=== PATIENT | female | born 1990 | race Caucasian/White ===

== ENCOUNTER 2016-07-07 13:37 | Inpatient (IN) | payer OTHER ==
[~2016-07-07] VITALS: Ht 154.9 cm; Wt 88.9 kg
[2016-07-07] MEDS ORDERED: ROPIVACAINE 40 MG/20 ML AMP EP ONE (15:00)
[2016-07-08] MEDS ORDERED: OXYTOCIN/NORMAL SALINE 1,000 ML IV SCH (05:40)
[2016-07-08] MEDS ORDERED: NALBUPHINE HCL 10 MG/ML AMP IVP PRN (05:45)
[2016-07-08] MEDS ORDERED: AMPICILLIN SODIUM 2 GM in NS 100 ML IV ONE (05:45)
[2016-07-08] MEDS ORDERED: TERBUTALINE SULFATE 1 MG/ML VIAL SUBCUT ONE (05:45)
[2016-07-08] MEDS: LR 1,000 ML IV SCH ×3 (06:00→10:30)
[2016-07-08] MEDS ORDERED: AMPICILLIN SODIUM 2 GM VIAL ONE (06:17)
[2016-07-08 06:47] LABS: BASOPHILS % (AUTO) 0.4 % (0.0-2.0); EOSINOPHILS # (AUTO) 0.1 K/uL (0.0-0.4); EOSINOPHILS % (AUTO) 0.8 % (0.0-4.0); HEMATOCRIT 30.7 % (36-48); HEMOGLOBIN 10.4 g/dL (12.0-16.0); LYMPHOCYTES # (AUTO) 1.2 K/uL (1.0-5.5); LYMPHOCYTES % (AUTO) 16.7 % (20.5-51.5); MEAN CORPUSCULAR HEMOGLOBIN 28 pg (27-31); MEAN CORPUSCULAR HGB CONC 34 % (32-36); MEAN CORPUSCULAR VOLUME 81 fL (79.0-98.0); MONOCYTES # (AUTO) 0.5 K/uL (0.0-1.0); MONOCYTES % (AUTO) 6.7 % (1.7-9.3); NEUTROPHILS # (AUTO) 5.6 K/uL (1.8-7.7); NEUTROPHILS % (AUTO) 75.4 % (40.0-70.0); PLATELET COUNT (AUTO) 215 K/uL (130-430); RED BLOOD CELL COUNT(AUTO) 3.79 MIL/uL (4.2-6.2); RED CELL DISTRIBUTION WIDTH 14.1 % (9.0-15.0); WHITE BLOOD COUNT (AUTO) 7.4 K/uL (4.8-10.8)
[2016-07-08 07:17] VITALS: BP_SYST 122
[2016-07-08] MEDS ORDERED: ACETAMINOPHEN 325 MG TABLET PO PRN (07:30)
[2016-07-08] MEDS ORDERED: FENT2mCg/mL-ROPIVA0.2%/NS EPID 150 ML EP ONE (09:06)
[2016-07-08] MEDS ORDERED: fentaNYL CITRATE/PF 100 MCG/2 ML AMP ONE (09:07)
[2016-07-08] MEDS ORDERED: AMPICILLIN SODIUM 1 GM in NS 50 ML IV SCH (09:45)
[2016-07-08] MEDS ORDERED: LR 500 ML IV ONE (09:51)
[2016-07-08] MEDS ORDERED: ePHEDrine sulfate 50 MG/ML VIAL IVP PRN (10:00)
[2016-07-08] MEDS ORDERED: fentaNYL CITRATE/PF 100 MCG/2 ML AMP EP ONE (10:00)
[2016-07-08] MEDS ORDERED: FENT2mCg/mL-ROPIVA0.2%/NS EPID 150 ML EP SCH (10:00)
[2016-07-08] MEDS ORDERED: TERBUTALINE SULFATE 1 MG/ML VIAL ONE (14:12)
[2016-07-08] MEDS ORDERED: MINERAL OIL 30 ML UDC PO ONE (15:00)
[2016-07-08] MEDS ORDERED: OXYTOCIN 10 UNIT/ML VIAL ONE (15:04)
[2016-07-08] MEDS ORDERED: METHYLERGONOVINE MALEATE 0.2 MG/ML AMP ONE (15:04)
[2016-07-08] MEDS ORDERED: OXYTOCIN/NORMAL SALINE 1,000 ML IV ONE (15:06)
[2016-07-08] MEDS ORDERED: DOCUSATE SODIUM 100 MG CAPSULE PO PRN (15:15)
[2016-07-08] MEDS ORDERED: OXYTOCIN 10 UNIT/ML VIAL IV ONE (15:15)
[2016-07-08] MEDS ORDERED: METHYLERGONOVINE MALEATE 0.2 MG TABLET PO PRN (15:15)
[2016-07-08] MEDS ORDERED: SENNOSIDES/DOCUSATE SODIUM 1 TAB TABLET(SENOKOT-S) PO PRN (15:15)
[2016-07-08] MEDS ORDERED: DERMOPLAST SPRAY TP PRN (15:15)
[2016-07-08] MEDS ORDERED: GLYCERIN/WITCH HAZEL (TUCKS PADS) TP PRN (15:15)
[2016-07-08] MEDS ORDERED: OXYCODONE/ACETAMINOPHEN 5-325 TABLET PO PRN (15:15)
[2016-07-08] MEDS ORDERED: METHYLERGONOVINE MALEATE 0.2 MG/ML AMP IM ONE (15:15)
[2016-07-08] MEDS ORDERED: ANUSOL 1 EA SUPP.RECT (PREPARATION H) RC PRN (15:15)
[2016-07-08] MEDS ORDERED: LANOLIN 7 GM OINT. TP PRN (15:15)
[2016-07-08] MEDS ORDERED: HYDROCORTISONE 0.5%, 28.35 GM TOPICAL CREAM TP PRN (15:15)
[2016-07-08] MEDS: IBUPROFEN 800 MG TABLET PO PRN (16:26)
[2016-07-08] MEDS: HYDROcodone/ACETAMIN 5-325 MG TAB (NORCO/ VICODIN) PO PRN (17:37)
[2016-07-08] MEDS ORDERED: TEMAZEPAM 15 MG CAPSULE PO PRN (21:00)
[2016-07-09] MEDS: IBUPROFEN 800 MG TABLET PO PRN ×2 (00:03→06:02)
[2016-07-09 06:16] LABS: HEMATOCRIT 25.9 % (36-48); HEMOGLOBIN 8.8 g/dL (12.0-16.0)
[2016-07-09] MEDS: HYDROcodone/ACETAMIN 5-325 MG TAB (NORCO/ VICODIN) PO PRN (08:11)
== END 2016-07-09 15:18 | disposition home or self-care (01) | DRG 775 ==
LOC: SPU 07-08 05:15
PROVIDERS: ADMIT Specialist; ATTEND Specialist
PROC: 10E0XZZ Delivery of Products of Conception, External Approach (ICD-10-PCS; principal; 2016-07-08)
PROC: 0W8NXZZ Division of Female Perineum, External Approach (ICD-10-PCS; 2016-07-08)
PROC: 3E0S3CZ (ICD-10-PCS; 2016-07-08)
PROC: 00HU33Z Insertion of Infusion Device into Spinal Canal, Percutaneous Approach (ICD-10-PCS; 2016-07-08)
PROC: 3E033VJ Introduction of Other Hormone into Peripheral Vein, Percutaneous Approach (ICD-10-PCS; 2016-07-08)
DX: O99.824 Streptococcus B carrier state complicating childbirth (principal); O75.89 Other specified complications of labor and delivery; O69.81X0 Labor and delivery complicated by cord around neck, without compression, not applicable or unspecified; O99.214 Obesity complicating childbirth; Z37.0 Single live birth; Z3A.40 40 weeks gestation of pregnancy; Z68.37 Body mass index [BMI] 37.0-37.9, adult
CPT/HCPCS: 36415; 81002-TC; 85018-TC; 85025; 86592; 86886; 86900; 86901; J0290; J2210; J2590; J2795; J3010; J3105; J7120

== ENCOUNTER 2017-04-13 12:51 | Outpatient (CLI) | payer OTHER | END 2017-04-13 20:19 | disposition home or self-care (01) | LOC: SRD 12:51 | PROVIDERS: ATTEND Family Medicine | DX: R05 Cough (principal) | CPT/HCPCS: 71046-TC ==

== ENCOUNTER 2018-04-03 05:24 | Emergency (ER) | payer OTHER ==
[~2018-04-03] VITALS: Ht 157.5 cm; Wt 82.6 kg
[2018-04-03 05:30] VITALS: BP_SYST 148
[2018-04-03 06:04] LABS: BILIRUBIN,URINE NEGATIVE (NEGATIVE); BLOOD, URINE 3+ (NEGATIVE); CLARITY/URINE HAZY (CLEAR); COLOR,URINE YELLOW (YELLOW); GLUCOSE,URINE NEGATIVE (NEGATIVE); KETONES,URINE NEGATIVE (NEGATIVE); LEUKOCYTE ESTERASE ,URINE 2+ (NEGATIVE); NITRITE, URINE POSITIVE (NEGATIVE); PROTEIN URINE 3+ (NEGATIVE); UROBILINOGEN,URINE 0.2 (0.2-1.0)
[2018-04-03] MEDS: KETOROLAC TROMETHAMINE 60 MG/2 ML VIAL IM ONE (06:08)
[2018-04-03 06:19] LABS: RBC,URINE 20-50 /HPF (0-3); WBC,URINE 20-50 /HPF (0-3)
[2018-04-03 06:20] VITALS: BP_SYST 132
[2018-04-03 06:20] LABS: BACTERIA,URINE MODERATE /HPF (None Seen); MUCUS,URINE 1+ /LPF (None Seen)
== END 2018-04-03 06:19 | disposition home or self-care (01) ==
LOC: SED 05:24
DX: N12 Tubulo-interstitial nephritis, not specified as acute or chronic (principal)
CPT/HCPCS: 81000; 81025; 87086; 87186; 96372; 99283; J1885

== ENCOUNTER 2018-08-17 13:28 | Outpatient (CLI) | payer OTHER | END 2018-08-17 20:10 | disposition home or self-care (01) | LOC: SUS 13:28 | PROVIDERS: ATTEND General Practice | DX: N83.202 Unspecified ovarian cyst, left side (principal); N83.201 Unspecified ovarian cyst, right side | CPT/HCPCS: 76770; 76830-TC; 76857 ==